=== PATIENT | female | born 1980 | race Caucasian/White ===

== ENCOUNTER → 2023-02-01 | Outpatient (CLI) | payer BC ==
--- NOTE | 2023-02-02 08:56 | CT ---
EXAMINATION TYPE: CT abdomen pelvis wo con CT DLP: 1160.8 mGycm, Automated exposure control for dose reduction was used. DATE OF EXAM: 02/01/2023 4:39 PM COMPARISON: None CLINICAL INDICATION:Female, 42 years old with history of R10.9 UNSPECIFIED ABDOMINAL PAIN; Placed on antibiotics for UTI x 2 weeks ago, right flank pain x 4 days. TECHNIQUE: Axial CT of the abdomen and pelvis. Sagittal and coronal reformats were created on a [employer] workstation. Contrast used: mL of , (none if empty) Oral contrast used: without Oral Contrast (none if empty) FINDINGS: LOWER CHEST: Unremarkable ABDOMEN LIVER: Diffusely hypoattenuating parenchyma. GALLBLADDER AND BILE DUCTS: The gallbladder is surgically absent. PANCREAS: Unremarkable. SPLEEN: Unremarkable. ADRENAL GLANDS: Unremarkable. KIDNEYS AND URETERS: Left nonobstructing calculi up to 3 mm. No right circumflex of uropathy or renal calculus. High density is seen within the collecting systems measuring up to 31 Hounsfield units. Th e left collecting system is less dilated and hard to get neck are numbered measures approximately 25 Hounsfield units. PELVIS BLADDER: Bladder castillo are within normal limits for size given limitations of exam. The urinary bladd er is nondistended. REPRODUCTIVE: Unremarkable. ABDOMEN & PELVIS STOMACH AND BOWEL: No evidence of bowel obstruction. PERITONEUM/RETROPERITONEUM: No evidence of pneumoperitoneum or free fluid. VASCULATURE: No evidence of aortic aneurysm. MUSCULOSKELETAL: No acute osseous abnormalities LYMPH NODES: No gross evidence for lymphadenopathy. SOFT TISSUE/ABDOMINAL WALL: Fat-containing umbilical hernia. IMPRESSION: 1. High-density material seen within the right collecting system. Consider Hydration and urinalysis correlation. 2. Nonobstructing left renal calculi up to 3 mm. 3. Hepatic steatosis. 4. Fat-containing buccal hernia.
== END | disposition home or self-care (01) ==
LOC: RADCTMAIN 16:16
PROVIDERS: ATTEND Family Medicine
DX: N20.0 Calculus of kidney (principal); K76.0 Fatty (change of) liver, not elsewhere classified; K42.0 Umbilical hernia with obstruction, without gangrene; N39.0 Urinary tract infection, site not specified
CPT/HCPCS: 74176